=== PATIENT | female | born 1980 | race Caucasian/White ===

== ENCOUNTER 2018-08-25 09:39 | Outpatient (CLI) | payer OTHER | END 2018-08-25 20:20 | disposition home or self-care (01) | LOC: SMA 09:39 | PROVIDERS: ATTEND Family Medicine | DX: Z12.31 Encounter for screening mammogram for malignant neoplasm of breast (principal) | CPT/HCPCS: 77067 ==

== ENCOUNTER 2019-11-30 10:07 | Outpatient (CLI) | payer OTHER | END 2019-11-30 21:14 | disposition home or self-care (01) | LOC: SMA 10:07 | PROVIDERS: ATTEND Family Medicine | DX: Z12.31 Encounter for screening mammogram for malignant neoplasm of breast (principal) | CPT/HCPCS: 77067 ==